=== PATIENT | female | born 1950 | race Caucasian/White ===

== ENCOUNTER 2017-08-27 12:47 | Outpatient (CLI) | payer BC, MEDICARE ==
[~2017-08-27 12:47] MED LIST: ASPI-1053 PO; CALC500T11 PO; MULT-1085 PO; OMEP20TA5 PO
== END 2017-08-27 23:59 | disposition home or self-care (01) ==
LOC: VAS 12:47
PROVIDERS: ATTEND Physician Assistant Medical
DX: M79.605 Pain in left leg (principal); R22.42 Localized swelling, mass and lump, left lower limb; M25.562 Pain in left knee
CPT/HCPCS: 93971